=== PATIENT | male | born 1935 | race Caucasian/White ===

== ENCOUNTER → 2018-10-03 | Outpatient (CLI) | payer MEDICARE ==
--- NOTE | 2018-10-03 13:46 | CT ---
EXAM DESCRIPTION: Head CLINICAL HISTORY: CLUSTER HEADACHE COMPARISON: April 12, 2018 TECHNIQUE: Noncontrast transaxial CT images of the head are obtained from base to vertex. This exam was performed according to our departmental dose-optimization program, which includes automated exposure control, adjustment of the mA and/or kV according to patient size and/or use of iterative reconstruction technique. FINDINGS: The midline structures are not displaced. Sulci are age-appropriate. There are areas of decreased attenuation in the periventricular white matter and the white matter of the centrum semiovale. There is no evidence of mass, mass-effect, hydrocephalus, or acute intracranial hemorrhage. No abnormal extra axial fluid collection is seen. Severe calcifications of the intracranial carotid arteries are seen. Bone windows show no evidence of depressed skull fracture. The visualized paranasal sinuses are unremarkable. IMPRESSION: 1. 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 2. No acute abnormality is seen on noncontrast CT of the head. Electronically signed by: Rayray Kitchen MD 10/03/2018 1:44 PM [facility]
== END ==
LOC: CT 13:11
PROVIDERS: ATTEND Nurse Practitioner
DX: G44.53 Primary thunderclap headache (principal)

== ENCOUNTER → 2019-07-05 | Outpatient (CLI) | payer MEDICARE ==
--- NOTE | 2019-07-05 13:55 | MRI ---
EXAM DESCRIPTION: MRA Head and/or Neck CLINICAL HISTORY: HEADACHE, SHORT TERM MEMORY LOSS COMPARISON: CT scan head without contrast September 2018. TECHNIQUE: 3D [id number] thin-section axial acquisitions through the base of the skull and the cowlitz Braga. Non contrast. MIP reconstructions. FINDINGS: Anterior circulation: plaque posterior wall with approximately 25% narrowing of the distal left cervical segment of ICA and minimal narrowing in the left carotid siphon. Intracranial segment unremarkable with normal appearance of the bifurcation. Marked narrowing of the A1 segment of the left IESHA. Anterior communicating artery is patent. Proximal IESHA segments bilaterally distal to the anterior communicating artery are relatively symmetric. Distal right cervical segment of the ICA and carotid siphon unremarkable. Intracranial segment is unremarkable with normal appearance of the bifurcation. Caliber of the proximal right IESHA and proximal right MCA unremarkable and symmetric including the proximal branches. Right A1 segment is unremarkable. IESHA is symmetric with the left IESHA. No posterior communicating arteries. No aneurysms, no mass effect, no vasculitis. Posterior circulation: Left vertebral slightly larger than the right. Left PICA vessel not well seen before the junction to form the basilar artery. The right AICA vessel is smaller than the left at the origin from the proximal basilar. Bilateral superior cerebellar arteries are symmetric and origins of the distal basilar artery. Symmetric bifurcation of the basilar artery to form the posterior cerebral arteries. No significant contribution from the anterior circulation with no posterior communicating arteries bilaterally. IMPRESSION: 1. 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 This could be congenital or a result of noncalcified atherosclerotic or microvascular disease. No calcifications on prior CT scan. Anterior communicating artery is patent and bilateral ACAs distal to the communicating artery are symmetric. No aneurysm, no mass effect, and no vasculitis. 2. Posterior circulation is unremarkable except for left PICA vessel not seen. 3. Included brain parenchyma showing no abnormal vascular blush or mass effect or space-occupying lesion. Electronically signed by: Juanpablo Myers MD 07/05/2019 1:54 PM OPERATING SYSTEM PROGRAMMER
--- NOTE | 2019-07-05 14:05 | US ---
EXAM DESCRIPTION: Carotid Duplex: ULTRASOUND. CLINICAL HISTORY: 84 years Male Other amnesia COMPARISON: MRA of the brain without IV contrast on the same visit. TECHNIQUE: Transcutaneous scanning utilizing gonzalez-scale and Doppler modes to evaluate the bilateral carotid systems and vertebral arteries. Percentage of diameter of stenosis or no stenosis recorded will be based upon NASCET criteria. FINDINGS: Peak systolic/end diastolic (CM-Sec) CCA Right 62/10 Left 74/15. ICA Right proximal 44/18, distal 47/16. Left proximal 73/27, Distal 60/23. Vertebral Right 43/10 Left 36/14. ECA (PS Only) Right 40 left 55. ICA/CCA peak systolic ratio: Right 0.8 Left 1.0 ICA/CCA end diastolic ratio: Right 1.7 Left 1.8 Vertebral arteries: antegrade flow. Comments: Atherosclerotic calcification bilaterally. Calcification involving the left mid CCA bulb.: Area stenosis 45%. Diameter stenosis 49%. Spectral broadening of the mid and distal left ICA. Right mid bulb CCA: Area and diameter stenosis less than 20%. Minimal spectral broadening in the distal right ICA. IMPRESSION: 1. Doppler evaluation of the bilateral carotid systems and vertebral arteries shows no hemodynamically significant stenoses. 2. No significant amount of plaque seen in the carotid arteries bilaterally. Bilateral vertebral arteries showed antegrade-cephalad flow. Electronically signed by: Juanpablo Myers MD 07/05/2019 2:03 PM RENAL NURSE
== END ==
LOC: MRI 09:45
PROVIDERS: ATTEND Nurse Practitioner
DX: R51 Headache (principal); R41.3 Other amnesia; R42 Dizziness and giddiness; I77.89 Other specified disorders of arteries and arterioles